=== PATIENT | female | born 1990 | race Hispanic/Latino ===

== ENCOUNTER 2017-10-11 09:52 | Emergency (ER) | payer MEDICAID ==
[2017-10-11 09:53] VITALS: BMI 26.6
[2017-10-11 10:15] VITALS: BP 130/77; PULSE 98; RESP 20; TEMP 98
--- NOTE | 2017-10-11 10:43 | ED PDOC ---
HPI: Abdomen Time Seen by Provider: 10/11/17 10:12 Chief Complaint (Nursing): Abdominal Pain Chief Complaint (Provider): abd pain, vomiting History Per: Patient Additional Complaint(s): 27-year-old female with history of gastric bypass surgery, 2 subsequent bowel resections as well as one subsequent bowel perforation presents to emergency department with abdominal pain that started at 3 AM associated with nausea and vomiting. Patient denies fever or chills. She denies any associated diarrhea. Patient states she cannot keep anything down since vomiting started. Patient is concerned about possible recurrence of small bowel obstruction which she has had in the past. She rates the abdominal pain as a 10 out of 10. No associated dysuria, vaginal bleeding or vaginal discharge. Past Medical History Reviewed: Historical Data, Nursing Documentation, Vital Signs Vital Signs: Last Vital Signs Temp 98.0 F 10/11/17 10:09 Pulse 98 H 10/11/17 10:09 Resp 20 10/11/17 10:09 BP 130/77 10/11/17 10:09 Pulse Ox 98 10/11/17 11:44 - Medical History PMH: Crohn's Disease, Multiple Sclerosis, Obstructive Bowel - Surgical History Other surgeries: gastric bypass, bowel resection x 2, bowel perf surgery x 1 - Family History Family History: States: No Known Family Hx - Living Arrangements Living Arrangements: With Family - Social History Current smoker - smoking cessation education provided: Yes (1 ppd) Alcohol: None Drugs: Denies - Allergies Allergies/Adverse Reactions: Allergies Allergy/AdvReac Type Severity Reaction Status Date / Time amoxicillin Allergy SWELLING Verified 08/22/16 11:12 NSAIDS (Non-Steroidal Allergy SWELLING Verified 08/22/16 11:12 Anti-Inflamma Review of Systems ROS Statement: Except As Marked, All Systems Reviewed And Found Negative Constitutional: Negative for: Fever, Chills, Weakness Cardiovascular: Negative for: Chest Pain Respiratory: Negative for: Cough Gastrointestinal: Positive for: Nausea, Vomiting, Abdominal Pain. Negative for : Diarrhea, Constipation, Melena, Hematochezia, Hematemesis, Rectal Pain Genitourinary Female: Negative for: Dysuria, Frequency, Incontinence, Hematuria , Vaginal Discharge, Vaginal Bleeding Physical Exam - Reviewed Nursing Documentation Reviewed: Yes Vital Signs Reviewed: Yes - Physical Exam Appears: Positive for: Well, Non-toxic, No Acute Distress Skin: Negative for: Rash Eye Exam: Positive for: Normal appearance Neck: Positive for: Normal Cardiovascular/Chest: Positive for: Regular Rate, Rhythm Respiratory: Positive for: Normal Breath Sounds Gastrointestinal/Abdominal: Positive for: Soft, Tenderness (Minimal diffuse tenderness with no rebound or guarding, no distention) Back: Negative for: L CVA Tenderness, R CVA Tenderness Extremity: Positive for: Normal ROM Neurologic/Psych: Positive for: Alert, Oriented - Laboratory Results Result Diagrams: 10/11/17 11:05 10/11/17 11:05 Urine POC: Negative Urine dip results: Positive for: Leukocyte Esterase (trace). Negative for: Blood, Nitrate, Ketones, Glucose, Bilirubin, Protein - ECG O2 Sat by Pulse Oximetry: 98 Pulse Ox Interpretation: Normal - Other Rad CT abd and pelvis with IV contrast X-Ray: Read By Radiologist KUB X-Ray: Interpreted by Me, Viewed By Me X-Ray Interpretation: no obstruction Medical Decision Making Medical Decision Makin-year-old female with abdominal pain and vomiting. Patient has extensive surgical history. Previous ED records reviewed. Patient' s last visit was December 2016 for same complaint. Previous note indicates that patient displayed drug-seeking behavior at that time. Patient states she is allergic to all NSAIDs, cannot take Tylenol. She was offered Bentyl for pain but she declined this medication. She states the only thing she can take for pain is morphine or Dilaudid - patient was given 2 mg IV morphine. Plan: CBC CMP Lipase UA/culture CT abd and pelvis with IV contrast IVF IV zofran 4 mg IV morphine 2 mg KUB 11:58 pm: patient requested that nurse remove her IV as it was causing pain to her right hand. I entered patient's room and told her that additional IV was inserted for CAT scan. Patient agreed to this. Patient was also noted to be putting her sneakers on. She states that she was simply going to the bathroom and did not want to wear only her socks. 12:30 pm: Patient never returned to ED, she eloped before treatment was complete , CT was not completed. Disposition - Clinical Impression Clinical Impression: Abdominal pain - Patient ED Disposition Is Patient to be Admitted: No - Disposition Disposition: Eloped Disposition Time: 12:30 Condition: UNKNOWN Forms: [employer] (Greek)
[2017-10-11] MEDS ORDERED: Sodium Chloride 0.9% 1,000 ML IV STA (10:53)
[2017-10-11] MEDS ORDERED: Morphine 4 MG/ML VIAL ONE (11:16)
[2017-10-11 11:44] VITALS: O2SAT 98
[2017-10-11 11:46] LABS: BASO % 0.2 % (0.0-2.0); EOS # 0.1 K/uL (0.0-0.7); HEMOGLOBIN 10.2 g/dL (12.0-16.0); LYMPH # 1.2 K/uL (1.0-4.3); LYMPH % 16.9 % (20.0-40.0); MEAN CELL VOLUME 74.7 fl (81.0-99.0); MEAN CORPUSCULAR HEMOGLOBIN 23.1 pg (27.0-31.0); MEAN CORPUSCULAR HGB CONC 30.9 g/dL (33.0-37.0); MEAN PLATELET VOLUME 9.7 fl (7.2-11.7); MONO # 0.5 K/uL (0.0-0.8); MONO % 6.9 % (0.0-10.0); NEUT # 5.1 K/uL (1.8-7.0); NRBC % 0.1 % (0.0-0.0); RBC 4.42 Mil/uL (3.80-5.20); RED CELL DISTRIBUTION WIDTH 18.2 % (11.5-14.5); WHITE BLOOD COUNT 6.8 K/uL (4.8-10.8)
[2017-10-11 11:48] LABS: ALB/GLOB RATIO 1.7 (1.0-2.1); ALBUMIN 4.7 g/dL (3.5-5.0); ALT/SGPT 33 U/L (9-52); AST/SGOT 22 U/L (14-36); BLOOD UREA NITROGEN 7 mg/dl (7-17); CALCIUM 9.9 mg/dL (8.4-10.2); GFR AFRICAN-AMERICAN > 60; GFR NON-AFRICAN AMERICAN > 60; LIPASE 81 U/L (23-300)
[2017-10-11 12:10] LABS: URINE BILIRUBIN NEGATIVE (NEGATIVE); URINE BLOOD NEGATIVE (NEGATIVE); URINE CLARITY CLEAR (Clear); URINE COLOR STRAW (YELLOW); URINE GLUCOSE (UA) NEG (Normal); URINE LEUKOCYTE ESTERASE NEG Leu/uL (Negative); URINE NITRATE NEGATIVE (NEGATIVE); URINE PROTEIN NEGATIVE (NEGATIVE); URINE UROBILINOGEN 0.2-1.0 mg/dL (0.2-1.0)
--- NOTE | 2017-10-11 13:03 | RAD ---
HISTORY: pain, history of SBO COMPARISON: Correlations made to CT scan of the abdomen and pelvis dated 08/22/2016. FINDINGS: BOWEL: No obstruction. No free air. BONES: Normal. OTHER FINDINGS: Surgical sutures redemonstrated in the left upper quadrant and right mid abdomen. IMPRESSION: No active disease.
== END 2017-10-11 12:05 | disposition left against medical advice (07) ==
LOC: H.ER 09:52
DX: R10.9 Unspecified abdominal pain (principal); K50.90 Crohn's disease, unspecified, without complications; G35 Multiple sclerosis; K56.609 Unspecified intestinal obstruction, unspecified as to partial versus complete obstruction; Z72.89 Other problems related to lifestyle
CPT/HCPCS: 74018; 80053; 81003; 81025; 83690; 85025; 87086; 96374; 96375; 99283; J2270; J2405; J7040